=== PATIENT | female | born 1955 | race Caucasian/White ===

== ENCOUNTER → 2018-09-30 | Outpatient (CLI) | payer OTHER ==
[~2018-09-30] MED LIST: ASCO10002 PO; ASPI-482 PO; BLAC40CA PO; FAMO-63 PO; FERR325C PO; HYDR-2145 PO; MELO15TA23 PO; METO-269 PO; MULT-246 PO; SIMV40TA3 PO; ZICAM
--- NOTE | 2018-09-30 11:26 | KCIC ---
3d digital tomography Bilateral History: Routine screening Technique: Bilateral 3d digital tomographic views were obtained with [employer] and reviewed on a [employer] workstation. In addition, CAD - computer aided detection was utilized. Comparison: August 07, 2017. Findings: Breast Tissue Density B : The breast tissue is composed of mixed fatty and fibroglandular tissue. There are no suspicious masses, microcalcifications or areas of architectural distortion. Impression: No suspicious findings. BI-RADS Category 1: Negative. Normal interval followup. The patient will receive a letter with the results in the mail. A mammogram does not have 100% sensitivity and therefore a negative imaging study should not delay further work up of a suspicious abnormality. Patient information is entered into the [facility] reminder system using [employer] with a target due date for the next screening mammogram. The patient will receive a reminder. "Our facility is accredited by the [employer] Mammography Program." Electronically signed by: Sd Wu III, MD (09/30/2018 11:22 AM) [facility]
== END | disposition home or self-care (01) ==
LOC: KCIC MAMMO 09:49
PROVIDERS: ATTEND Internal Medicine
DX: Z12.31 Encounter for screening mammogram for malignant neoplasm of breast (principal)
CPT/HCPCS: 77063; 77067

== ENCOUNTER → 2019-10-01 | Outpatient (CLI) | payer OTHER ==
[~2019-10-01] MED LIST changes: +SIMV40TA18 PO; -SIMV40TA3 PO
--- NOTE | 2019-10-01 18:27 | KCIC ---
BILATERAL SCREENING MAMMOGRAM History: Routine screening. Comparison: Bilateral mammogram September 30, 2018. Technique: Routine bilateral digital mammogram views were obtained. Findings: Breast Tissue Density A : The breasts are almost entirely fatty. Biopsy clip left breast 9:00 A position. There are no dominant masses, suspicious microcalcifications, or architectural distortion. IMPRESSION: No mammographic evidence of malignancy. Recommend routine screening. BI-RADS category 1: Negative. The images were reviewed with computer aided detection. Patient information is entered into the reminder system with a target due date for the next screening mammogram. Mammography is the most sensitive method for finding small breast cancers, but it does not detect them all and is not a substitute for careful clinical examination. A negative mammogram does not negate a clinically suspicious finding and should not result in delay in biopsying a clinically suspicious abnormality. "Our facility is accredited by the [employer] Mammography [employer]." Electronically signed by: Donovan Busby MD (10/01/2019 6:25 PM) [facility]
== END | disposition home or self-care (01) ==
LOC: KCIC MAMMO 13:49
PROVIDERS: ATTEND Internal Medicine
DX: Z12.31 Encounter for screening mammogram for malignant neoplasm of breast (principal)
CPT/HCPCS: 77067

== ENCOUNTER → 2020-10-03 | Outpatient (CLI) | payer MEDICARE ==
[~2020-10-03] MED LIST changes: +ASCO100019 PO; -ASCO10002 PO
--- NOTE | 2020-10-03 15:07 | KCIC ---
Bilateral digital screening mammograms Reason for examination: Routine screening. Comparison is made to previous study dated October 01, 2019 and priors Routine CC and MLO digital views obtained. Interpretation was made with the benefit of CAD. The skin and nipples show no abnormalities. No abnormal lymph nodes are seen. The breast parenchyma i s scattered fibroglandular elements. (Breast density: Category B.) There are no suspicious masses, lester spicious calcifications or architectural distortions. Right upper outer breast subcentimeter nodular density is stable likely an intramammary lymph node, benign. Left breast biopsy clip. Benign calcific ations. Impression: Negative mammogram. Recommend routine screening. BI-RADS Category 2: Benign. "Our facility is accredited by the [employer] Mammography [employer]." This patient's information has been entered into a reminder system for the patient to be notified wit h the results of her examination and a target date for the next mammogram. Electronically signed by: Tin Mcnally MD (10/03/2020 3:04 PM) [email or web address]
== END ==
LOC: KCIC MAMMO 08:49
PROVIDERS: ATTEND Internal Medicine
DX: Z12.31 Encounter for screening mammogram for malignant neoplasm of breast (principal)
CPT/HCPCS: 77067

== ENCOUNTER → 2021-11-09 | Outpatient (CLI) | payer BC, MEDICARE ==
--- NOTE | 2021-11-09 12:09 | KCIC ---
Bilateral digital screening mammograms: Reason for examination: Routine screening. Comparison is made to previous studies dated back to 07/01/2016. Interpretation was made with the benefit of CAD. The skin and nipples show no abnormalities. No abnormal axillary lymph nodes are seen. The breast par enchyma shows scattered fibroglandular density. (Breast density: Category B.) There continue to be sm all nodular parenchymal asymmetries which are stable. There are no new dominant masses, suspicious ca lcifications or architectural distortions. Biopsy clip remains present on the left. Impression: No evidence of malignancy. Recommend routine screening. BI-RADS Category 2: Benign. "Our facility is accredited by the [employer] Mammography Program." This patient's information has been entered into a reminder system for the patient to be notified wit h the results of her examination and a target date for the next mammogram. Electronically signed by: Mae Carney MD (11/09/2021 12:07 PM) [email or web address]
== END ==
LOC: KCIC MAMMO 11:12
PROVIDERS: ATTEND Internal Medicine
DX: Z12.31 Encounter for screening mammogram for malignant neoplasm of breast (principal)
CPT/HCPCS: 77067